=== PATIENT | male | born 2000 | race Caucasian/White ===

== ENCOUNTER 2019-07-21 18:32 | Emergency (ER) | payer SELFPAY ==
--- NOTE | 2019-07-21 19:53 | EDM.PDOC ---
ED HPI GENERAL MEDICAL PROBLEM - General Chief Complaint: Lower Extremity Injury/Pain Stated Complaint: ANKLE INJURY LEFT Time Seen by Provider: 07/21/19 19:03 Source of Information: Reports: Patient History Limitations: Reports: No Limitations - History of Present Illness INITIAL COMMENTS - FREE TEXT/NARRATIVE: Mr. Wright is a very pleasant 19-year-old man with a past medical history significant for an unrepaired VSD, on no medications, who states that he was playing basketball Saturday night, 07/19/2019, at the [facility], when he jumped up and came down, landing on the foot of another player, causing his left foot to roll inward. Since that time, he has Domingo wrapped his foot and put it into someone else's too-small CAM walker boot. He states that he has elevated his ankle, but he has not applied any ice. The patient states that he suffered a very similar injury when he was a teenager. He states that it was adequately evaluated and found to be sprained, not broken. The patient is otherwise uninjured. The patient does not have a PCP. He did not receive an influenza vaccine this season, and declined an offer for one tonight. 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 [No Known Home Meds] 07/21/19 [History] Past Medical History Cardiovascular History: Reports: Other (See Below) (VSD, unrepaired) - Past Surgical History HEENT Surgical History: Reports: Adenoidectomy, Tonsillectomy Social & Family History - Tobacco Use Smoking Status *Q: Current Every Day Smoker Years of Tobacco use: 6 Packs/Tins Daily: 0.2 Packs/Tins Daily Comment: Down from 1 ppd - Caffeine Use Caffeine Use: Reports: Soda, Tea - Alcohol Use Alcohol Use History: Yes Alcohol Use Frequency: Rarely - Recreational Drug Use Recreational Drug Use: No - Living Situation & Occupation Living situation: Reports: Single, with Family 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 ED EXAM, GENERAL - Physical Exam Exam: See Below Exam Limited By: No Limitations General Appearance: Alert, WD/WN, No Apparent Distress Extremities: Other (There is considerable swelling to the left ankle, primarily over the lateral malleolus, but involving the dorsum of the foot and the medial malleolus as well. There is mild tenderness to the foot, inferior to the medial malleolus, but the medial malleolus itself is nontender. No tenderness to the foot, or to the anterior or posterior syndesmoses. There is considerable tenderness all around the lateral malleolus, and ecchymosis is noted to the lateral aspect of the foot, although there is no tenderness in that area. The left dorsalis pedis and posterior tibialis pulses are somewhat diminished, likely due to swelling, as the patient reports normal sensation to the foot and capillary refill of the toes is normal.) Course - Vital Signs Last Recorded V/S: Last Vital Signs Temp 36.7 C 07/21/19 18:45 Pulse 71 07/21/19 18:45 Resp 20 07/21/19 18:45 BP 134/81 07/21/19 18:45 Pulse Ox 99 07/21/19 18:45 - Orders/Labs/Meds Orders: Active Orders 24 hr Category Date Time Status DME for Discharge [COMM] Stat Oth 07/21/19 20:16 Ordered - Re-Assessments/Exams Free Text/Narrative Re-Assessment/Exam: 07/21/19 19:52 The patient has a considerable amount of swelling, and even some ecchymosis to his left lateral ankle/foot. I have ordered x-rays to evaluate for a fracture. 07/21/19 20:13 5-view radiographs of the left ankle appear to be entirely normal. No fracture or dislocation identified. Formal read per the Radiologist pending. 07/21/19 20:17 X-ray results discussed with the patient. The patient appears to have a grade 1 -2 sprain of his left ankle. Unfortunately, since his injury occurred about 48 hours ago, there is not much that can be done about the swelling. The patient will be fitted with a stirrup Aircast, that I would like him to wear for about a week, then gradually increase his ankle range of motion, as tolerated. Ibuprofen will work better than Tylenol for discomfort. The patient declined an offer for a note for work. Departure - Departure Time of Disposition: :18 Disposition: Home, Self-Care 01 Condition: Good Clinical Impression: Left ankle sprain - Discharge Information *PRESCRIPTION DRUG MONITORING PROGRAM REVIEWED*: Not Applicable *COPY OF PRESCRIPTION DRUG MONITORING REPORT IN PATIENT SAMANTA: Not Applicable Instructions: Ankle Sprain, [id number] Referrals: Austyn Lester MD [Physician] - Forms: ED Department Discharge Additional Instructions: You were seen in the emergency room after rolling your left foot inward Saturday while playing basketball. Workup in the ER included x-rays of your left ankle, which returned normal. No broken bones or dislocations were found. Based on your history, physical exam, and ER x-rays, your left ankle is sprained. You have been fitted with an Aircast. Put this on every morning, and remove it at bedtime. Wear it for about a week, then gradually increase the range of motion of your ankle, as tolerated. Take [id number] ibuprofen as needed for discomfort. If your ankle fails to improve after a couple of weeks, please follow-up with the Orthopedic Surgeon Dr. Austyn Lester. If any other problems, please do not hesitate to return to the ER. Sepsis Event Note - Evaluation Sepsis Screening Result: No Definite Risk - Focused Exam Date Exam was Performed: 07/22/19 Time Exam was Performed: 16:33 - My Orders Last 24 Hours: My Active Orders 07/21/19 20:16 DME for Discharge [COMM] Stat - Assessment/Plan Last 24 Hours: My Active Orders 07/21/19 20:16 DME for Discharge [COMM] Stat
--- NOTE | 2019-07-21 20:35 | CR ---
Left ankle: 4 views left ankle were obtained. Comparison: No previous study. Well-corticated bony density is noted off the anterior and dorsal talus which appears to be old. Soft tissue swelling is noted. Ankle mortise is symmetric. No acute fracture or dislocation is seen. Impression: 1. Findings as noted above. 2. No acute bony abnormality is identified. Diagnostic code #2 This report was dictated in [place] Standard Time
== END 2019-07-21 20:34 | disposition home or self-care (01) ==
LOC: JD.ED 18:32
DX: S93.402A Sprain of unspecified ligament of left ankle, initial encounter (principal); F17.210 Nicotine dependence, cigarettes, uncomplicated; X50.1XXA Overexertion from prolonged static or awkward postures, initial encounter; Y93.67 Activity, basketball; Y92.89 Other specified places as the place of occurrence of the external cause
CPT/HCPCS: 73610-26-LT; 73610-LT; 99283-25